=== PATIENT | male | born 1960 | race Caucasian/White ===

== ENCOUNTER 2016-09-28 17:03 | Emergency (ER) | payer OTHER ==
[~2016-09-28] VITALS: Ht 177.8 cm; Wt 74.8 kg
[2016-09-28] MEDS ORDERED: NORCO 5-325 TA1 EACH PO (18:08)
[2016-09-28 18:20] VITALS: BP 119/68
== END 2016-09-28 18:20 | disposition home or self-care (01) ==
LOC: ER 17:03
DX: S62.102A Fracture of unspecified carpal bone, left wrist, initial encounter for closed fracture (principal); S40.011A Contusion of right shoulder, initial encounter; F10.99 Alcohol use, unspecified with unspecified alcohol-induced disorder; Z23 Encounter for immunization; Z90.89 Acquired absence of other organs; V17.4XXA Pedal cycle driver injured in collision with fixed or stationary object in traffic accident, initial encounter; Y93.I9 Activity, other involving external motion; Y92.89 Other specified places as the place of occurrence of the external cause; Y99.8 Other external cause status